=== PATIENT | female | born 1950 | race Caucasian/White ===

== ENCOUNTER 2024-02-09 19:45 | Inpatient (IN) | payer MEDICARE, OTHER ==
[~2024-02-09] VITALS: Ht 165.1 cm; Wt 44.2 kg
[~2024-02-09 19:45] MED LIST: AMLO-212 PO; ASPI-605 PO; BENA20TA9 PO; BENZ2TAB7 PO; CALC-7 PO; CLON0.5T4 PO; ERGO500014 PO; ESCI10TA PO; FERR325T23 PO; FLUP5TAB14 PO; IBUP-1953 PO; MIRT-90 PO; PANT40TA2 PO; RANI150T8 PO; SIMV-46 PO
[2024-02-09 21:20] LABS: BASOPHILS % (AUTO) 0.7 % (0.0-2.0); EOSINOPHILS # (AUTO) 0.3 K/uL (0.0-0.7); HEMATOCRIT 35 % (33-45); HEMOGLOBIN 11.6 g/dL (11.5-14.8); LYMPHOCYTES # (AUTO) 1.2 K/uL (0.8-4.8); MEAN CORPUSCULAR HEMOGLOBIN 30 PG (26.0-33.0); MEAN CORPUSCULAR HGB CONC 33 g/dl (31.0-36.0); MEAN CORPUSCULAR VOLUME 91 fL (82-100); MONOCYTES # (AUTO) 0.5 K/uL (0.1-1.30); NEUTROPHILS # (AUTO) 4.4 K/uL (1.8-8.9); NEUTROPHILS % (AUTO) 68.3 % (43.0-81.0); PLATELET COUNT (AUTO) 228 K/uL (150-450); RED BLOOD CELL COUNT(AUTO) 3.86 MIL/uL (4.0-5.2); RED CELL DISTRIBUTION WIDTH 12.7 % (11.5-15.0); WHITE BLOOD COUNT (AUTO) 6.5 K/uL (4.3-11.0)
[2024-02-09] MEDS ORDERED: ONDANSETRON HCL/PF 4 MG/2 ML VIAL ONE (21:20)
[2024-02-09] MEDS: ONDANSETRON HCL/PF 4 MG/2 ML VIAL IVP ONE (21:21)
[2024-02-09] MEDS: IV NS 0.9% 1,000 ML BAG IV ONE (21:21)
[2024-02-09 21:33] LABS: INR 0.98 (0.91-1.10); PARTIAL THROMBOPLASTIN TIME 23.9 SEC (24.3-34.3); PROTHROMBIN TIME 10.4 SECS (9.2-11.1)
[2024-02-09 21:37] LABS: ALANINE AMINOTRANSFERASE 26 U/L (12-78); ALBUMIN 2.8 g/dL (3.4-5.0); ALKALINE PHOSPHATASE 159 U/L (46-116); ASPARTATE AMINOTRANSFERASE 23 U/L (15-37); BILIRUBIN,DIRECT 0.1 mg/dL (0.0-0.2); BILIRUBIN,TOTAL 0.3 mg/dL (0.2-1.0); CARBON DIOXIDE 30 mmol/L (21-32); CHLORIDE 105 mmol/L (98-107); CREATININE 0.7 mg/dL (0.6-1.3); GLUCOSE 164 mg/dL (74-106); LIPASE 60 U/L (16-77); POTASSIUM 3.6 mmol/L (3.5-5.1); SODIUM SERUM 140 mmol/L (136-145); TOTAL PROTEIN, SERUM 6.6 g/dL (6.4-8.2); UREA NITROGEN, BLOOD 24 mg/dL (7-18)
[2024-02-09 21:43] LABS: SERUM AMMONIA 11 umol/L (11-32)
[2024-02-09] MEDS ORDERED: ONDANSETRON HCL/PF 4 MG/2 ML VIAL IVP PRN (23:30)
[2024-02-09] MEDS ORDERED: MAGNESIUM HYDROXIDE 30 ML UDC PO PRN (23:30)
[2024-02-09] MEDS ORDERED: MAG HYDROX/AL HYDROX/SIMETH 30 ML UDC PO PRN (23:30)
[2024-02-09 23:58] VITALS: BP 129/91; TEMP 98.1; O2SAT 99
[2024-02-10] VITALS: BP 129/91; TEMP 98.1; O2SAT 99
[2024-02-10] MEDS: IV 1/2NS 1000 ML 1,000 ML IV SCH (00:25)
[2024-02-10] MEDS ORDERED: ESCITALOPRAM OXALATE (10 MG) 10 MG TABLET PO SCH (00:30)
[2024-02-10] MEDS: clonazePAM 0.5 MG TABLET PO PRN (03:35)
[2024-02-10 08:05] VITALS: BP 130/82; TEMP 98.2; O2SAT 97
[2024-02-10] MEDS: PANTOPRAZOLE 40 MG TABLET.DR PO SCH (08:30)
[2024-02-10] MEDS: FERROUS SULFATE (325 MG) 325 MG/TAB TABLET PO SCH (08:31)
[2024-02-10] MEDS: BENAZEPRIL HCL 20 MG TABLET PO SCH (08:31)
[2024-02-10] MEDS: ASPIRIN EC 81 MG TABLET.DR PO SCH (08:31)
[2024-02-10] MEDS: CALCIUM CARB 250MG /VITAMIN D 1 UDTAB PO SCH (08:31)
[2024-02-10] MEDS: BENZTROPINE MESYLATE (1 MG) 1 MG TABLET PO SCH (08:31)
[2024-02-10] MEDS: AMLODIPINE BESYLATE 5 MG TABLET PO SCH (08:32)
[2024-02-10] MEDS ORDERED: MEMA5TAB42 PO (08:51)
[2024-02-10] MEDS ORDERED: OXCA300T15 PO (08:51)
[2024-02-10] MEDS ORDERED: BENA10TA74 PO (08:51)
[2024-02-10] MEDS ORDERED: TRAZ-257 PO (08:51)
[2024-02-10] MEDS ORDERED: MULT-594 PO (08:51)
[2024-02-10] MEDS ORDERED: OLAN10TA6 PO (08:51)
[2024-02-10] MEDS ORDERED: CRAN1CAP7 PO (08:51)
[2024-02-10] MEDS ORDERED: OLAN5TAB6 PO (08:51)
[2024-02-10] MEDS ORDERED: CLOT15CR27 TP (08:51)
[2024-02-10] MEDS ORDERED: FLUPHENAZINE HCL 5 MG TABLET PO SCH (09:00)
[2024-02-10] MEDS ORDERED: FLUPHENAZINE HCL 10 MG TABLET PO SCH ×2 (09:00)
[2024-02-10] MEDS: FAMOTIDINE (20 MG) 20 MG TABLET PO SCH (09:54)
[2024-02-10 10:51] LABS: CALCIUM, SERUM 9.2 mg/dL (8.5-10.1); CARBON DIOXIDE 27 mmol/L (21-32); CHLORIDE 107 mmol/L (98-107); CREATININE 0.5 mg/dL (0.6-1.3); GLUCOSE 89 mg/dL (74-106); POTASSIUM 3.7 mmol/L (3.5-5.1); SODIUM SERUM 141 mmol/L (136-145); UREA NITROGEN, BLOOD 14 mg/dL (7-18)
[2024-02-10 11:30] LABS: BASOPHILS % (AUTO) 0.9 % (0.0-2.0); EOSINOPHILS # (AUTO) 0.4 K/uL (0.0-0.7); EOSINOPHILS % (AUTO) 7.3 % (0.0-6.0); HEMATOCRIT 35 % (33-45); HEMOGLOBIN 11.7 g/dL (11.5-14.8); LYMPHOCYTES # (AUTO) 0.9 K/uL (0.8-4.8); LYMPHOCYTES % (AUTO) 16.4 % (20.0-44.0); MEAN CORPUSCULAR HEMOGLOBIN 30 PG (26.0-33.0); MEAN CORPUSCULAR HGB CONC 33 g/dl (31.0-36.0); MEAN CORPUSCULAR VOLUME 91 fL (82-100); MONOCYTES # (AUTO) 0.4 K/uL (0.1-1.30); MONOCYTES % (AUTO) 7.8 % (2.0-12.0); NEUTROPHILS # (AUTO) 3.7 K/uL (1.8-8.9); NEUTROPHILS % (AUTO) 67.6 % (43.0-81.0); PLATELET COUNT (AUTO) 217 K/uL (150-450); RED BLOOD CELL COUNT(AUTO) 3.84 MIL/uL (4.0-5.2); RED CELL DISTRIBUTION WIDTH 13.1 % (11.5-15.0); WHITE BLOOD COUNT (AUTO) 5.5 K/uL (4.3-11.0)
[2024-02-10] MEDS: OXCARBAZEPINE 150 MG TABLET PO SCH (17:24)
[2024-02-10] MEDS: CLOTRIMAZOLE 1% 15 GM TUBE TP SCH (17:26)
[2024-02-10 20:00] VITALS: BP 131/87; TEMP 98.1; O2SAT 97
[2024-02-10] MEDS: OLANZAPINE ZYDIS 5 MG TAB.RAPDIS PO SCH (20:23)
[2024-02-10] MEDS: SIMVASTATIN 20 MG TABLET PO SCH (21:08)
[2024-02-10] MEDS: MIRTAZAPINE 15 MG TABLET PO SCH (21:08)
[2024-02-10] MEDS ORDERED: TRAZODONE 50 MG TABLET PO SCH (22:00)
[2024-02-10] MEDS ORDERED: MIRTAZAPINE 15 MG TABLET PO SCH ×2 (22:00)
[2024-02-10] MEDS ORDERED: MEMANTINE HCL 5 MG TABLET PO SCH (22:00)
[2024-02-10] MEDS ORDERED: OLANZAPINE 10 MG TABLET PO SCH (22:00)
[2024-02-10] MEDS: ACETAMINOPHEN 325 MG TABLET PO PRN (23:40)
[2024-02-11 00:10] LABS: APPEARANCE,URINE SLIGHTLY CLOUDY (CLEAR); BILIRUBIN,URINE NEGATIVE (NEGATIVE); BLOOD, URINE 2+ Ery/uL (NEGATIVE); COLOR,URINE YELLOW (YELLOW); KETONES,URINE NEGATIVE (NEGATIVE); LEUKOCYTE ESTERASE ,URINE 3+ (NEGATIVE); NITRITE, URINE POSITIVE (NEGATIVE); PH,URINE 5.5 (5.0-8.0); PROTEIN,URINE NEGATIVE (NEGATIVE); UGLUCOSE NEGATIVE (NEGATIVE); UROBILINOGEN,URINE 0.2 EU/dL (0.2)
[2024-02-11 00:11] LABS: ADD URINE CULTURE YES; BACTERIA,URINE Moderate /HPF (None Seen); SQUAMOUS EPITHELIAL CELL,UR Few /HPF (None Seen); WBC,URINE 51-80 /HPF (0-3)
[2024-02-11] MEDS: ERGOCALCIFEROL (VITAMIN D 2) 50,000 UNIT CAPSULE PO SCH (00:33)
[2024-02-11] MEDS: CEFTRIAXONE 1 G in IV D5W 50 ML IV SCH ×2 (00:40→23:00)
[2024-02-11 06:36] LABS: BASOPHILS # (AUTO) 0.1 K/uL (0.0-0.2); BASOPHILS % (AUTO) 2.8 % (0.0-2.0); EOSINOPHILS # (AUTO) 0.4 K/uL (0.0-0.7); EOSINOPHILS % (AUTO) 8.3 % (0.0-6.0); HEMATOCRIT 35 % (33-45); HEMOGLOBIN 11.9 g/dL (11.5-14.8); LYMPHOCYTES % (AUTO) 19.6 % (20.0-44.0); MEAN CORPUSCULAR HEMOGLOBIN 31 PG (26.0-33.0); MEAN CORPUSCULAR HGB CONC 34 g/dl (31.0-36.0); MEAN CORPUSCULAR VOLUME 91 fL (82-100); MONOCYTES # (AUTO) 0.5 K/uL (0.1-1.30); MONOCYTES % (AUTO) 9.2 % (2.0-12.0); NEUTROPHILS # (AUTO) 3.2 K/uL (1.8-8.9); NEUTROPHILS % (AUTO) 60.1 % (43.0-81.0); PLATELET COUNT (AUTO) 224 K/uL (150-450); RED BLOOD CELL COUNT(AUTO) 3.88 MIL/uL (4.0-5.2); RED CELL DISTRIBUTION WIDTH 12.9 % (11.5-15.0); WHITE BLOOD COUNT (AUTO) 5.2 K/uL (4.3-11.0)
[2024-02-11 06:51] LABS: CALCIUM, SERUM 8.9 mg/dL (8.5-10.1); CARBON DIOXIDE 29 mmol/L (21-32); CHLORIDE 107 mmol/L (98-107); CREATININE 0.7 mg/dL (0.6-1.3); GLUCOSE 84 mg/dL (74-106); POTASSIUM 3.5 mmol/L (3.5-5.1); SODIUM SERUM 139 mmol/L (136-145); UREA NITROGEN, BLOOD 9 mg/dL (7-18)
[2024-02-11 06:59] LABS: MAGNESIUM 2.2 mg/dL (1.8-2.4); PHOSPHORUS 3.2 mg/dL (2.5-4.9)
[2024-02-11] MEDS: MULTIVITAMINS,THERAGRAN 1 UDTAB TABLET PO SCH (08:25)
[2024-02-11] MEDS: clonazePAM 0.5 MG TABLET PO SCH (08:27)
[2024-02-11] MEDS: CEFTRIAXONE 1GM BAG (ER ONLY) 50 ML IV ONE (08:44)
[2024-02-11] MEDS: BENAZEPRIL HCL 10 MG TABLET PO SCH (08:49)
[2024-02-11] MEDS ORDERED: CRANBERRY PO SCH (09:00)
[2024-02-11] MEDS ORDERED: OLANZAPINE ZYDIS 5 MG TAB.RAPDIS PO SCH (09:00)
[2024-02-11] MEDS ORDERED: ASCORBIC ACID PO SCH (09:00)
[2024-02-11] MEDS ORDERED: [UNRECOGNIZED DRUG - OTHER] PO SCH (09:00)
[2024-02-11] MEDS: OXCARBAZEPINE 150 MG TABLET PO SCH (13:00)
[2024-02-12 06:34] LABS: BASOPHILS # (AUTO) 0.1 K/uL (0.0-0.2); BASOPHILS % (AUTO) 0.9 % (0.0-2.0); EOSINOPHILS # (AUTO) 0.3 K/uL (0.0-0.7); EOSINOPHILS % (AUTO) 5.9 % (0.0-6.0); HEMATOCRIT 38 % (33-45); HEMOGLOBIN 12.7 g/dL (11.5-14.8); LYMPHOCYTES # (AUTO) 1.1 K/uL (0.8-4.8); LYMPHOCYTES % (AUTO) 19.7 % (20.0-44.0); MEAN CORPUSCULAR HEMOGLOBIN 31 PG (26.0-33.0); MEAN CORPUSCULAR HGB CONC 34 g/dl (31.0-36.0); MEAN CORPUSCULAR VOLUME 91 fL (82-100); MONOCYTES # (AUTO) 0.5 K/uL (0.1-1.30); NEUTROPHILS # (AUTO) 3.5 K/uL (1.8-8.9); NEUTROPHILS % (AUTO) 64.5 % (43.0-81.0); PLATELET COUNT (AUTO) 240 K/uL (150-450); RED BLOOD CELL COUNT(AUTO) 4.16 MIL/uL (4.0-5.2); RED CELL DISTRIBUTION WIDTH 12.8 % (11.5-15.0); WHITE BLOOD COUNT (AUTO) 5.5 K/uL (4.3-11.0)
[2024-02-12 06:47] LABS: CALCIUM, SERUM 9.2 mg/dL (8.5-10.1); CARBON DIOXIDE 29 mmol/L (21-32); CHLORIDE 107 mmol/L (98-107); CREATININE 0.7 mg/dL (0.6-1.3); GLUCOSE 97 mg/dL (74-106); POTASSIUM 3.7 mmol/L (3.5-5.1); SODIUM SERUM 141 mmol/L (136-145); UREA NITROGEN, BLOOD 15 mg/dL (7-18)
[2024-02-12 07:09] LABS: PHOSPHORUS 3.4 mg/dL (2.5-4.9)
[2024-02-12] MEDS: clonazePAM 0.5 MG TABLET PO SCH (13:44)
[2024-02-12] MEDS: OLANZAPINE ZYDIS 5 MG TAB.RAPDIS PO SCH (20:16)
[2024-02-13 08:00] VITALS: BP 121/75; TEMP 97.5; O2SAT 92
[2024-02-13 11:08] LABS: BASOPHILS % (AUTO) 1.1 % (0.0-2.0); EOSINOPHILS # (AUTO) 0.1 K/uL (0.0-0.7); EOSINOPHILS % (AUTO) 3.3 % (0.0-6.0); HEMATOCRIT 36 % (33-45); HEMOGLOBIN 12.2 g/dL (11.5-14.8); LYMPHOCYTES % (AUTO) 22.4 % (20.0-44.0); MEAN CORPUSCULAR HEMOGLOBIN 31 PG (26.0-33.0); MEAN CORPUSCULAR HGB CONC 34 g/dl (31.0-36.0); MEAN CORPUSCULAR VOLUME 91 fL (82-100); MONOCYTES # (AUTO) 0.4 K/uL (0.1-1.30); MONOCYTES % (AUTO) 9.2 % (2.0-12.0); NEUTROPHILS # (AUTO) 2.8 K/uL (1.8-8.9); PLATELET COUNT (AUTO) 261 K/uL (150-450); RED BLOOD CELL COUNT(AUTO) 3.99 MIL/uL (4.0-5.2); WHITE BLOOD COUNT (AUTO) 4.4 K/uL (4.3-11.0)
[2024-02-13 11:42] LABS: CALCIUM, SERUM 9.1 mg/dL (8.5-10.1); CARBON DIOXIDE 31 mmol/L (21-32); CHLORIDE 107 mmol/L (98-107); CREATININE 0.7 mg/dL (0.6-1.3); GLUCOSE 81 mg/dL (74-106); PHOSPHORUS 3.6 mg/dL (2.5-4.9); POTASSIUM 3.9 mmol/L (3.5-5.1); SODIUM SERUM 142 mmol/L (136-145); UREA NITROGEN, BLOOD 12 mg/dL (7-18)
[2024-02-13 16:00] VITALS: BP 93/74; TEMP 98.1; O2SAT 94
[2024-02-13 19:16] VITALS: BP 102/65; TEMP 98.6; O2SAT 92
[2024-02-14 01:22] VITALS: BP 108/70; TEMP 98.2; O2SAT 94
[2024-02-14 06:18] LABS: BASOPHILS # (AUTO) 0.1 K/uL (0.0-0.2); BASOPHILS % (AUTO) 0.7 % (0.0-2.0); EOSINOPHILS # (AUTO) 0.4 K/uL (0.0-0.7); HEMATOCRIT 38 % (33-45); HEMOGLOBIN 12.8 g/dL (11.5-14.8); LYMPHOCYTES # (AUTO) 2.1 K/uL (0.8-4.8); LYMPHOCYTES % (AUTO) 24.4 % (20.0-44.0); MEAN CORPUSCULAR HEMOGLOBIN 31 PG (26.0-33.0); MEAN CORPUSCULAR HGB CONC 34 g/dl (31.0-36.0); MEAN CORPUSCULAR VOLUME 91 fL (82-100); MONOCYTES # (AUTO) 0.9 K/uL (0.1-1.30); MONOCYTES % (AUTO) 10.3 % (2.0-12.0); NEUTROPHILS # (AUTO) 5.1 K/uL (1.8-8.9); NEUTROPHILS % (AUTO) 59.6 % (43.0-81.0); PLATELET COUNT (AUTO) 260 K/uL (150-450); RED BLOOD CELL COUNT(AUTO) 4.19 MIL/uL (4.0-5.2); RED CELL DISTRIBUTION WIDTH 12.8 % (11.5-15.0); WHITE BLOOD COUNT (AUTO) 8.5 K/uL (4.3-11.0)
[2024-02-14 06:32] LABS: CALCIUM, SERUM 9.6 mg/dL (8.5-10.1); CARBON DIOXIDE 27 mmol/L (21-32); CHLORIDE 107 mmol/L (98-107); CREATININE 0.8 mg/dL (0.6-1.3); GLUCOSE 98 mg/dL (74-106); MAGNESIUM 2.1 mg/dL (1.8-2.4); PHOSPHORUS 3.6 mg/dL (2.5-4.9); POTASSIUM 4.4 mmol/L (3.5-5.1); SODIUM SERUM 143 mmol/L (136-145); UREA NITROGEN, BLOOD 17 mg/dL (7-18)
[2024-02-14 19:39] VITALS: BP 117/80; TEMP 98.2; O2SAT 95
[2024-02-14 20:00] VITALS: BP 117/80; TEMP 98.2; O2SAT 98
[2024-02-15 07:02] LABS: BASOPHILS # (AUTO) 0.1 K/uL (0.0-0.2); BASOPHILS % (AUTO) 1.3 % (0.0-2.0); EOSINOPHILS # (AUTO) 0.3 K/uL (0.0-0.7); HEMATOCRIT 39 % (33-45); HEMOGLOBIN 12.9 g/dL (11.5-14.8); LYMPHOCYTES # (AUTO) 1.1 K/uL (0.8-4.8); LYMPHOCYTES % (AUTO) 22.1 % (20.0-44.0); MEAN CORPUSCULAR HEMOGLOBIN 31 PG (26.0-33.0); MEAN CORPUSCULAR HGB CONC 33 g/dl (31.0-36.0); MEAN CORPUSCULAR VOLUME 92 fL (82-100); MONOCYTES # (AUTO) 0.5 K/uL (0.1-1.30); MONOCYTES % (AUTO) 9.2 % (2.0-12.0); NEUTROPHILS % (AUTO) 61.4 % (43.0-81.0); PLATELET COUNT (AUTO) 269 K/uL (150-450); RED BLOOD CELL COUNT(AUTO) 4.23 MIL/uL (4.0-5.2)
[2024-02-15 07:24] LABS: CALCIUM, SERUM 9.2 mg/dL (8.5-10.1); CARBON DIOXIDE 26 mmol/L (21-32); CHLORIDE 104 mmol/L (98-107); CREATININE 0.6 mg/dL (0.6-1.3); GLUCOSE 101 mg/dL (74-106); MAGNESIUM 2.2 mg/dL (1.8-2.4); PHOSPHORUS 3.5 mg/dL (2.5-4.9); POTASSIUM 4.1 mmol/L (3.5-5.1); SODIUM SERUM 138 mmol/L (136-145); UREA NITROGEN, BLOOD 18 mg/dL (7-18)
[2024-02-15 08:00] VITALS: BP 150/96; TEMP 98; O2SAT 97
[2024-02-15] MEDS: OXCARBAZEPINE 150 MG TABLET PO SCH (09:11)
[2024-02-15] MEDS ORDERED: IV 1/2NS 1000 ML 1,000 ML IV PRN (11:08)
[2024-02-15 16:01] VITALS: BP 150/96; TEMP 98; O2SAT 97
[2024-02-15] MEDS ORDERED: ENSURE ENLIVE 237 ML LIQUID (VANILLA) PO SCH (17:00)
[2024-02-15] MEDS ORDERED: MIRT7.5T10 PO (18:40)
[2024-02-15] MEDS ORDERED: LACT-58 PO (18:40)
[2024-02-15] MEDS ORDERED: FAMO20TA8 PO (18:40)
[2024-02-15] MEDS ORDERED: MAG30ORA PO (18:40)
[2024-02-15] MEDS ORDERED: ACET325T53 PO (18:40)
[2024-02-15] MEDS ORDERED: ASPI-1420 PO (18:40)
[2024-02-15] MEDS ORDERED: MAGN400O6 PO (18:40)
== END 2024-02-15 17:30 | DRG 640 ==
LOC: ER 19:46 → TELE 22:15 → MED 23:30
PROVIDERS: ATTEND Student in an Organized Health Care Education/Training Program
DX: E86.0 Dehydration (principal); E43 Unspecified severe protein-calorie malnutrition; N39.0 Urinary tract infection, site not specified; Z68.1 Body mass index [BMI] 19.9 or less, adult; G93.40 Encephalopathy, unspecified; F01.52 Vascular dementia, unspecified severity, with psychotic disturbance; F01.53 Vascular dementia, unspecified severity, with mood disturbance; F01.518 Vascular dementia, unspecified severity, with other behavioral disturbance; E11.9 Type 2 diabetes mellitus without complications; B96.20 Unspecified Escherichia coli [E. coli] as the cause of diseases classified elsewhere; E88.09 Other disorders of plasma-protein metabolism, not elsewhere classified; I10 Essential (primary) hypertension; J44.9 Chronic obstructive pulmonary disease, unspecified; Z79.82 Long term (current) use of aspirin; Z88.0 Allergy status to penicillin; R53.1 Weakness; F39 Unspecified mood [affective] disorder; F29 Unspecified psychosis not due to a substance or known physiological condition
CPT/HCPCS: 36415; 70450-TC; 71045-TC; 80048-TC; 80076-TC; 81001; 82140-TC; 83690-TC; 83735-TC; 84100-TC; 84443-TC; 84484-TC; 85025-TC; 85730-TC; 87081-TC; 87086-TC; 92526; 92611-TC; 97110-TC; 97112-TC; 97530-TC; A4223; G0378; J0696; J2405; J3490; J7030; J7060; J7070

== ENCOUNTER 2024-02-15 17:59 | Inpatient (IN) | payer MEDICARE, OTHER ==
[~2024-02-15] VITALS: Ht 162.6 cm; Wt 44.1 kg
[~2024-02-15 17:59] MED LIST changes: -ASPI-605 PO; +BENA10TA74 PO; -BENA20TA9 PO; +CLOT15CR27 TP; +CRAN1CAP7 PO; -ESCI10TA PO; -FLUP5TAB14 PO; +MEMA5TAB42 PO; -MIRT-90 PO; +MULT-594 PO; +OLAN10TA6 PO; +OLAN5TAB6 PO; +OXCA300T15 PO; -RANI150T8 PO; +TRAZ-257 PO
[2024-02-15] MEDS ORDERED: MAG HYDROX/AL HYDROX/SIMETH 30 ML UDC PO PRN (18:30)
[2024-02-15] MEDS ORDERED: QUETIAPINE FUMARATE 25 MG TABLET PO PRN (18:30)
[2024-02-15] MEDS ORDERED: MAGNESIUM HYDROXIDE 30 ML UDC PO PRN (18:30)
[2024-02-15] MEDS ORDERED: LACT-58 PO (18:40)
[2024-02-15] MEDS ORDERED: FAMO20TA8 PO (18:40)
[2024-02-15] MEDS ORDERED: MAG30ORA PO (18:40)
[2024-02-15] MEDS ORDERED: MAGN400O6 PO (18:40)
[2024-02-15] MEDS ORDERED: MIRT7.5T10 PO (18:40)
[2024-02-15] MEDS ORDERED: ACET325T53 PO (18:40)
[2024-02-15] MEDS ORDERED: ASPI-1420 PO (18:40)
[2024-02-15] MEDS: ENSURE ENLIVE 237 ML LIQUID (VANILLA) PO SCH (20:31)
[2024-02-15 21:09] VITALS: BP 112/75; TEMP 98.1; O2SAT 99
[2024-02-15] MEDS: SIMVASTATIN 20 MG TABLET PO SCH (21:11)
[2024-02-15] MEDS: FAMOTIDINE (20 MG) 20 MG TABLET PO SCH (21:11)
[2024-02-15] MEDS: ACETAMINOPHEN 325 MG TABLET PO PRN (21:11)
[2024-02-15] MEDS: OLANZAPINE 10 MG VIAL IM ONE (21:51)
[2024-02-16] MEDS: PANTOPRAZOLE 40 MG TABLET.DR PO SCH (07:43)
[2024-02-16] MEDS: AMLODIPINE BESYLATE 5 MG TABLET PO SCH (08:58)
[2024-02-16] MEDS: ASPIRIN EC 81 MG TABLET.DR PO SCH (08:58)
[2024-02-16] MEDS: FERROUS SULFATE (325 MG) 325 MG/TAB TABLET PO SCH (08:58)
[2024-02-16] MEDS: MULTIVITAMINS,THERAGRAN 1 UDTAB TABLET PO SCH (08:58)
[2024-02-16] MEDS: CALCIUM CARB 250MG /VITAMIN D 1 UDTAB PO SCH (08:58)
[2024-02-16] MEDS: CLOTRIMAZOLE 1% 15 GM TUBE TP SCH (09:00)
[2024-02-16 09:24] LABS: CHOLESTEROL 169 mg/dL (<200); HDL CHOLESTEROL 65 mg/dL (40-60); LDL 89 mg/dL (0-99); TRIGLYCERIDES 82 mg/dL (30-150)
[2024-02-16] MEDS: BENAZEPRIL HCL 10 MG TABLET PO SCH (09:37)
[2024-02-16] MEDS: OXCARBAZEPINE 150 MG TABLET PO SCH (14:24)
[2024-02-16 15:55] LABS: ALANINE AMINOTRANSFERASE 38 U/L (12-78); ALBUMIN 3.4 g/dL (3.4-5.0); ALKALINE PHOSPHATASE 174 U/L (46-116); ASPARTATE AMINOTRANSFERASE 38 U/L (15-37); BILIRUBIN,TOTAL 0.2 mg/dL (0.2-1.0); CARBON DIOXIDE 19 mmol/L (21-32); CHLORIDE 104 mmol/L (98-107); CREATININE 0.6 mg/dL (0.6-1.3); GLUCOSE 102 mg/dL (74-106); POTASSIUM 4.2 mmol/L (3.5-5.1); SODIUM SERUM 140 mmol/L (136-145); UREA NITROGEN, BLOOD 17 mg/dL (7-18)
[2024-02-16] MEDS: clonazePAM 0.5 MG TABLET PO SCH (16:13)
[2024-02-16 19:55] VITALS: BP 97/75; TEMP 98.1; O2SAT 98
[2024-02-16] MEDS: OLANZAPINE 2.5 MG TABLET PO SCH (21:50)
[2024-02-17 08:00] VITALS: BP 105/57; TEMP 97.8; O2SAT 97
[2024-02-17] MEDS: OLANZAPINE 2.5 MG TABLET PO PRN (10:21)
[2024-02-17 16:00] VITALS: BP 103/87; TEMP 98.6; O2SAT 97
[2024-02-17 20:00] VITALS: BP 108/87; TEMP 98.3; O2SAT 99
[2024-02-17] MEDS: ZOLPIDEM TARTRATE 5 MG TABLET PO PRN (22:03)
[2024-02-18 08:00] VITALS: BP 157/96; TEMP 97.7; O2SAT 96
[2024-02-18] MEDS: ERGOCALCIFEROL (VITAMIN D 2) 50,000 UNIT CAPSULE PO SCH (09:00)
[2024-02-18] MEDS: OLANZAPINE 10 MG VIAL IM ONE (09:51)
[2024-02-18] MEDS: OXCARBAZEPINE 150 MG TABLET PO SCH (12:46)
[2024-02-18 16:00] VITALS: BP 124/83; TEMP 97.8; O2SAT 96
[2024-02-18 20:00] VITALS: BP 80/69; TEMP 97.7; O2SAT 100
[2024-02-19 08:00] VITALS: BP 139/90; TEMP 98; O2SAT 95
[2024-02-19 16:00] VITALS: BP 103/73; TEMP 97.9; O2SAT 97
[2024-02-19 20:00] VITALS: BP 100/77; TEMP 97.7; O2SAT 100
[2024-02-19] MEDS: Z GUARD REMEDY 4 OZ OINT TP SCH (21:24)
[2024-02-20 08:00] VITALS: BP 109/59; TEMP 98.6; O2SAT 94
[2024-02-20 16:00] VITALS: BP 98/68; TEMP 98; O2SAT 94
[2024-02-20 20:42] VITALS: BP 132/80; TEMP 98.6; O2SAT 98
[2024-02-21 08:00] VITALS: BP 132/87; TEMP 97.7; O2SAT 96
[2024-02-21 16:00] VITALS: BP 99/81; TEMP 97.7; O2SAT 100
[2024-02-21 20:40] VITALS: BP 103/77; TEMP 97.8; O2SAT 96
[2024-02-22 08:00] VITALS: BP 126/89; TEMP 98.7; O2SAT 96
[2024-02-22] MEDS: OLANZAPINE 2.5 MG TABLET PO SCH (12:07)
[2024-02-22 16:00] VITALS: BP 100/61; TEMP 98.2; O2SAT 94
[2024-02-22 19:50] VITALS: BP 126/89; TEMP 98.7
[2024-02-22 19:57] VITALS: BP 97/70; TEMP 98.2; O2SAT 94
[2024-02-22 20:10] VITALS: BP 97/70; TEMP 98.2; O2SAT 97
[2024-02-22] MEDS: MIRTAZAPINE 15 MG TABLET PO SCH (21:10)
[2024-02-22] MEDS: Z GUARD REMEDY 4 OZ OINT TP PRN (21:12)
[2024-02-23 08:00] VITALS: BP 113/73; TEMP 97.7; O2SAT 96
[2024-02-23 16:00] VITALS: BP 90/67; TEMP 97.7; O2SAT 96
[2024-02-23 20:00] VITALS: BP 94/65; TEMP 98; O2SAT 98
[2024-02-23] MEDS: OLANZAPINE 5 MG TABLET PO SCH (21:24)
[2024-02-24 08:00] VITALS: BP 143/87; TEMP 97.9; O2SAT 97
[2024-02-24] MEDS: clonazePAM 0.5 MG TABLET PO SCH (14:39)
[2024-02-24 16:00] VITALS: BP 99/58; TEMP 98.7; O2SAT 97
[2024-02-24 20:00] VITALS: BP 98/85; TEMP 98.2; O2SAT 100
[2024-02-25 08:00] VITALS: BP 150/90; TEMP 97.9; O2SAT 98
[2024-02-25 16:00] VITALS: BP 93/64; TEMP 98; O2SAT 95
[2024-02-25 20:00] VITALS: BP 101/69; TEMP 97.8; O2SAT 98
[2024-02-26 08:00] VITALS: BP 105/77; TEMP 97.7; O2SAT 97
[2024-02-26 16:00] VITALS: BP 107/76; TEMP 98.6; O2SAT 98
[2024-02-26 20:00] VITALS: BP 133/87; TEMP 98.4; O2SAT 99
[2024-02-26] MEDS ORDERED: ONDANSETRON 4 MG TAB.RAPDIS PO PRN (22:30)
[2024-02-27 08:00] VITALS: BP 131/106; TEMP 97.3; O2SAT 99
[2024-02-27 16:00] VITALS: BP 106/77; TEMP 98.1; O2SAT 97
[2024-02-27 20:29] VITALS: BP 133/88; TEMP 98.1; O2SAT 95
[2024-02-28 21:26] VITALS: BP_SYST 136; BP_SYST 96; BP_DIAS 85; TEMP 97.9; O2SAT 97
[2024-02-29 08:00] VITALS: BP 114/63; TEMP 97.9; O2SAT 96
[2024-02-29 16:00] VITALS: BP 85/55; TEMP 97.9; O2SAT 98
[2024-02-29 20:00] VITALS: BP 105/73; TEMP 97.9; O2SAT 96
[2024-03-01 08:00] VITALS: BP 120/71; TEMP 98; O2SAT 98
[2024-03-01 16:00] VITALS: BP 97/66; TEMP 98.1; O2SAT 98
[2024-03-01 20:00] VITALS: BP 95/64; TEMP 98; O2SAT 100
[2024-03-02 08:00] VITALS: BP 114/81; TEMP 98.4; O2SAT 97
[2024-03-02 16:06] VITALS: BP 84/66; TEMP 97.9; O2SAT 96
[2024-03-02 20:00] VITALS: BP 86/66; TEMP 98.3; O2SAT 95
[2024-03-03 08:00] VITALS: BP 132/87; TEMP 98.7; O2SAT 96
[2024-03-03 08:36] VITALS: BP 132/87
== END 2024-03-03 13:05 | DRG 885 ==
LOC: GPS 17:59
PROVIDERS: ADMIT Psychiatry & Neurology Psychiatry; ATTEND Internal Medicine
DX: F25.9 Schizoaffective disorder, unspecified (principal); F01.52 Vascular dementia, unspecified severity, with psychotic disturbance; E43 Unspecified severe protein-calorie malnutrition; G93.40 Encephalopathy, unspecified; Z68.1 Body mass index [BMI] 19.9 or less, adult; F01.518 Vascular dementia, unspecified severity, with other behavioral disturbance; F01.53 Vascular dementia, unspecified severity, with mood disturbance; F29 Unspecified psychosis not due to a substance or known physiological condition; J44.9 Chronic obstructive pulmonary disease, unspecified; E78.5 Hyperlipidemia, unspecified; E86.0 Dehydration; E88.09 Other disorders of plasma-protein metabolism, not elsewhere classified; I10 Essential (primary) hypertension; Z78.1 Physical restraint status; Z88.0 Allergy status to penicillin; G47.00 Insomnia, unspecified; Z20.822 Contact with and (suspected) exposure to COVID-19; F39 Unspecified mood [affective] disorder; R53.1 Weakness; Z87.440 Personal history of urinary (tract) infections; F31.89 Other bipolar disorder
CPT/HCPCS: 36415; 80048-TC; 80053-TC; 80061-TC; 97110-TC; 97112-TC; 97116-TC; 97530-TC; J3490